=== PATIENT | male | born 1970 | race Caucasian/White ===

== ENCOUNTER 2022-04-17 12:41 | Emergency (ER) | payer OTHER, SELFPAY ==
[2022-04-17 12:50] VITALS: BP 152/82; PULSE 95; RESP 16; TEMP 36.3; O2SAT 98; BMI 22.6
--- NOTE | 2022-04-17 13:40 | CTR_ITS ---
PROCEDURE INFORMATION: Exam: CT Right Lower Extremity Without Contrast; Lower Leg Exam date and time: 04/17/2022 1:54 PM Age: 51 years old Clinical indication: Injury or trauma; Other: Crushed by metal pipes; Crushing; Lower leg; Right; Additional info: Crush injury-swelling/pain posterior knee/calf, need from above knee through calf TECHNIQUE: Imaging protocol: CT of the Right lower extremity without contrast was performed. Exam focused on the lower leg. Radiation optimization: All CT scans at this facility use at least one of these dose optimization techniques: automated exposure control; mA and/or kV adjustment per patient size (includes targeted exams where dose is matched to clinical indication); or iterative reconstruction. COMPARISON: No relevant prior studies available. RADIATION DOSE METRICS: Total DLP (mGy-cm): 671.49 FINDINGS: Bones/joints: Small joint effusion. Prepatellar soft tissue swelling anterior to the patella and patellar tendon consistent with prepatellar bursitis versus contusion/hematoma versus cellulitis. Soft tissues: Probable heterogeneous contusions in the medial calf muscles with no obvious hematomas. CT/CT lower leg RT wo con* [id number] IMPRESSION: 1. Small joint effusion. 2. Prepatellar soft tissue swelling anterior to the patella and patellar tendon consistent with prepatellar bursitis versus contusion/hematoma versus cellulitis. 3. Probable heterogeneous contusions in the medial calf muscles with no obvious hematomas.
--- NOTE | 2022-04-17 13:40 | W.ED.EXTPRO ---
HPI - Extremity Problem General: Chief complaint: Extremity Injury, Lower Stated complaint: Injury to both legs Time Seen by Provider: 04/17/22 13:23 Source: patient Mode of arrival: wheelchair Limitations: no limitations History of Present Illness: Patient is a nice 51-year-old male who presents to ED today for evaluation of a right lower leg injury that he sustained earlier today after the extremity was crushed by extremely heavy piping material. He apparently was seen at [facility] and had XRs of the knee performed and told to come to the ED to rule out a hairline fracture and/or possible compartment syndrome. That report came from patient himself and I did not speak to provider who cared for patient. Patient tells me he was up on a cluster of large metal pipes when he fell and several of the pipes landed onto his legs. He states he was trapped underneath the pipes for approximately 5 minutes. He states he did initially have some numbness and tingling to his right lower extremity while trapped but states this has subsided. He has noticed swelling to the posterior aspect of his right knee and down into his right calf. He has not noticed any color or temperature changes to the extremity. He has multiple abrasions throughout bilateral lower legs. MD Complaint: extremity pain and extremity swelling Onset (ago): hour(s) Pain Consistency: constant Location: right and lower extremity Radiation: none Relieving factors: immobilization Exacerbating factors: weight bearing, walking and palpation Associated symptoms: Reports no associated symptoms; Deny chest pain Review of Systems Card: Denies: chest pain Resp: Denies: dyspnea GI: Denies: abdominal pain Musc: Reports: extremity pain (R calf/lower leg), extremity swelling (R calf/lower leg), joint pain (R knee) and joint swelling (R knee); Denies: neck pain, back pain, joint redness or joint warmth Skin/Breast: Reports: other (multiple abrasions) Neuro: Denies: headache(s), numbness in extremities, weakness in extremities or sensory changes Physical Exam Const: COMMON NORMALS: no acute distress, average body habitus, patient oriented x3, no limitations, healthy appearing, alert and well nourished GENERAL APPEARANCE: cooperative Resp: COMMON NORMALS: normal respiratory effort and clear to auscultation bilaterally AUSCULTATION: clear to auscultation bilaterally Cardio: COMMON NORMALS: regular rate and regular rhythm RATE: regular rate RHYTHM: regular rhythm GI: COMMON NORMALS: Normal to inspection, nondistended, normoactive bowel sounds present, Soft to palpation and non-tender PALPATION: Yes Soft to palpation Back/Pelvis: COMMON NORMALS: thoracic and lumbar spine normal to inspection, no thoracic nor lumbar tenderness and thoraco-lumbar ROM normal Extremity: COMMON NORMALS: capillary refill normal and no pedal edema GENERAL: Yes normal exam except as noted RIGHT LOWER EXTREMITY: Yes knee joint and Yes lower leg OTHER: pt has tenderness/swelling noted to R posterior knee and into calf/gastrocnemius musculature; he does not seem to have any bony tenderness of knee joint; he has easily palpable DP/PT pulses with normal cap refill and sensation; his calf, although very swollen, is soft without any concern for a compartment syndrome at this time; pain is not out of proportion to exam Neuro: COMMON NORMALS: patient oriented x3, moves all extremities, no focal motor deficits and no sensory deficits noted SENSORIUM/ORIENTATION: Yes alert Skin: NARRATIVE SKIN EXAM: multiple very superficial abrasions to bilateral mainly anterior lower legs Course Vital Signs: Vital signs: Vital Signs Temperature 97.4 F L 04/17/22 12:50 Pulse Rate 95 04/17/22 12:50 Respiratory Rate 16 04/17/22 12:50 Blood Pressure 152/82 04/17/22 12:50 Pulse Oximetry 98 04/17/22 12:50 MDM - Extremity (Nontraumatic) Medical Decision Making Patient has prepatellar swelling most likely secondary to contusion/hematoma. He does have heterogeneous contusions throughout his gastrocnemius muscles with no obvious hematoma fluid collections. No bony injury noted. Extremity at this time is neurovascularly intact and I have zero concern for compartment syndrome at this time. We will have him non-weightbearing, ice, elevate the extremity and will have him follow-up with orthopedics for further evaluation and treatment. Strict return ED precautions given and patient verbalizes understanding. Lab Data Radiology Impressions Lower Extremity CT 04/17/22 13:40 IMPRESSION: 1. Small joint effusion. 2. Prepatellar soft tissue swelling anterior to the patella and patellar tendon consistent with prepatellar bursitis versus contusion/hematoma versus cellulitis. 3. Probable heterogeneous contusions in the medial calf muscles with no obvious hematomas. Discharge Plan Discharge Patient Disposition: Home Clinical Impression: Muscle contusion Hematoma of right lower extremity Qualifiers: Encounter type: initial encounter Qualified Code(s): S80.11XA - Contusion of right lower leg, initial encounter Condition: Stable Discharge Orders: Discharge ED (Routine); Ordered 04/17/22 Ordered By: Kristan Angeles Referrals: Garrison Freeman MD [Primary Care Provider] - Activity Restrictions/Additional Instructions: As we discussed no weight bearing on the extremity until cleared by orthopedics. Case management should contact you shortly to set you up with this follow-up appointment. As we discussed I would like you to ice the extremity for 15 to 20 minutes every hour and elevate is much as possible to help with the swelling. You need to return to the emergency department for any worsening or severe pain, severe tightness to the leg, coolness/pallor, numbness/tingling/loss of sensation, or any other concerns you may have. I hope you begin to feel better soon. Coding Level of Care Code ED Boilerhouse Mechanic for [facility]
--- NOTE | 2022-04-18 09:56 | DCPLANNER ---
Addendum entered by Leanne Ahumada 05/04/22 13:11: audio visual manager received the following message from the ortho clinic: Attempted to reach pt/left vm and mailed letter for pt to call and schedule an appt with TAYLOR Aldana Original Note: audio visual manager had message to schedule a follow up appointment for patient with ortho. audio visual manager sent patients information to the front office of ortho. Patients information will be printed and reviewed. Clinic will call patient with appointment information.
== END 2022-04-17 15:12 | disposition home or self-care (01) ==
PROVIDERS: Emergency Provider Physician Assistant; PCP Family Medicine
DX: S80.11XA Contusion of right lower leg, initial encounter (principal); S80.812A Abrasion, left lower leg, initial encounter; S80.811A Abrasion, right lower leg, initial encounter; S80.12XA Contusion of left lower leg, initial encounter; W20.8XXA Other cause of strike by thrown, projected or falling object, initial encounter
CPT/HCPCS: 73700; 99284; E0114

== ENCOUNTER 2023-05-15 00:33 | Emergency (ER) | payer MEDICAID, SELFPAY ==
[2023-05-15 00:34] VITALS: BP 140/93; PULSE 90; RESP 18; O2SAT 98; BMI 24.2
[2023-05-15 00:48] LABS: Basophils # 0.1 10^3/uL (0.0-0.1); Basophils % 0.5 %; Eosinophils # 0.1 10^3/uL (0.0-0.8); Eosinophils % 1.4 %; Hematocrit 33.2 % (37-53); Lymphocytes # 1.1 10^3/uL (0.8-4.8); Lymphocytes % 10.9 %; Mean Corpuscular Hemoglobin 34.9 pg (27-33); Mean Corpuscular Volume 102.5 fl (82-101); Mean Platelet Volume 8.8 fL (7.4-10.4); Monocytes # 0.7 10^3/uL (0.2-0.9); Monocytes % 7.1 %; Neutrophils # 7.79 10^3/uL (1.8-7.7); Neutrophils % 79.6 %; Nucleated Red Blood Cells % 0 %; Platelet Count 748 10^3/cmm (157-399); Red Blood Count 3.24 10^6/uL (3.85-5.65); Red Cell Distribution Width 12.7 % (12.1-15.1)
--- NOTE | 2023-05-15 00:56 | ED_ITS ---
HPI - Altered Mental Status General: Chief Complaint: Altered Mental Status Stated Complaint: pulled out tubes Time Seen by Provider: 05/15/23 00:42 History of Present Illness: Patient presents to the ER by EMS with complaints of intermittent episode of delirium where he pulled out all of his drains and feeding tube. Patient just had what appeared to be radical neck surgery with bone grafting to his mandible and a drain and skin graft on his left lower leg no family is with patient at bedside. EMS stated he had similar episodes in the hospital. EMS stated that they thought he was just discharged back home today. They did talk him down from his delirious state he is alert oriented and back to normal at this time. Patient is in no distress. Review of Systems General: Reports: 10 or more systems reviewed and unremarkable except in HPI and below Physical Exam Const: COMMON NORMALS: no acute distress, average body habitus, patient oriented x3, no limitations, healthy appearing, alert and well nourished HENMT: COMMON NORMALS: normocephalic, atraumatic, hearing grossly normal bilaterally, external ears normal, Normal external nose present and moist oral mucous membranes HEAD & SCALP: normocephalic and atraumatic NOSE: Normal external nose present EXTERNAL EAR: Yes external ears normal Eye: COMMON NORMALS: Equal, round and reactive pupils present, EOMs intact bilaterally, conjunctivae normal and no scleral icterus CONJUNCTIVA: Yes conjunctivae normal PUPIL: Yes Equal, round and reactive pupils present Neck/C-Spine: COMMON NORMALS: no JVD OTHER: Very large incision down mandible down neck. 2 drain tube sites noted 1 on each side of lateral neck. No drain in place. Chest: COMMONS NORMALS: normal inspection of the chest and normal palpation of entire chest wall Resp: COMMON NORMALS: normal respiratory effort, No retractions, No use of accessory muscles and clear to auscultation bilaterally AUSCULTATION: clear to auscultation bilaterally Cardio: COMMON NORMALS: no JVD, regular rate, regular rhythm, S1 normal heart sound present, S2 normal heart sound present and No gallops present (Cardio) RATE: regular rate RHYTHM: regular rhythm HEART SOUNDS: S1 normal heart sound present and S2 normal heart sound present GI: COMMON NORMALS: Normal to inspection, nondistended, normoactive bowel sounds present, Soft to palpation, non-tender and No hepatosplenomegaly present PALPATION: Yes Soft to palpation and Yes No hepatosplenomegaly present Neuro: COMMON NORMALS: patient oriented x3 SENSORIUM/ORIENTATION: Yes alert Skin: NARRATIVE SKIN EXAM: Large postsurgical incision noted to left calf with drain insertion site with no drain noted. Course Vital Signs: Vital signs: Vital Signs Pulse Rate 83 05/15/23 01:02 Respiratory Rate 20 H 05/15/23 01:02 Blood Pressure 124/76 05/15/23 01:02 Pulse Oximetry 96 05/15/23 01:02 Oxygen Delivery Me thod Room Air 05/15/23 01:02 MDM - Altered Mental Status Medical Decision Making Dr. Lozada ENT resident was called from [facility] who is familiar with the patient's case. He said the drains are not significant as they were not draining very much upon discharge. He said the tracheostomy was pulled before discharge. He had actually seen the patient yesterday in our clinic. And they will call him tomorrow to make arrangements for a possible GI tube/PEG tube for long-term feeding. Otherwise patient be discharged home. These findings was discussed with patient and family members and they are in agreements that this is acceptable. Patient be discharged home. Differential Diagnosis Likely altered mental status and delirium; Unlikely alcoholic intoxication, dementia, hypoglycemia, hyponatremia, subarachnoid hemorrhage or sepsis Medical Records I reviewed the patient's medical records. Lab Data I reviewed the patient's lab results. 05/15/23 00:23 05/15/23 00:23 Laboratory Results WBC 9.80 10^3/uL (3.29-11.43) 05/15/23 00:23 RBC 3.24 10^6/uL (3.85-5.65) L 05/15/23 00:23 Hgb 11.30 g/dL (11.27-16.99) 05/15/23 00:23 Hct 33.2 % (37-53) L 05/15/23 00:23 MCV 102.5 fl (82-101) H 05/15/23 00:23 MCH 34.9 pg (27-33) H 05/15/23 00:23 MCHC 34.0 g/dL (30-55) 05/15/23 00:23 RDW 12.7 % (12.1-15.1) 05/15/23 00:23 Plt Count 748 10^3/cmm (157-399) H 05/15/23 00:23 MPV 8.8 fL (7.4-10.4) 05/15/23 00:23 Neut % (Auto) 79.6 % 05/15/23 00:23 Lymph % (Auto) 10.9 % 05/15/23 00:23 Lipscomb % (Auto) 7.1 % 05/15/23 00:23 Eos % (Auto) 1.4 % 05/15/23 00:23 Baso % (Auto) 0.5 % 05/15/23 00:23 Neut # (Auto) 7.79 10^3/uL (1.8-7.7) H 05/15/23 00:23 Lymph # (Auto) 1.1 10^3/uL (0.8-4.8) 05/15/23 00:23 Lipscomb # (Auto) 0.7 10^3/uL (0.2-0.9) 05/15/23 00:23 Eos # (Auto) 0.1 10^3/uL (0.0-0.8) 05/15/23 00:23 Baso # (Auto) 0.1 10^3/uL (0.0-0.1) 05/15/23 00:23 Nucleated RBC % (auto) 0 % 05/15/23 00: Nucleated RBCs # 0.0 /100WBC 05/15/23 00:23 Sodium 141 mmol/L (136-145) 05/15/23 00:23 Potassium 3.6 mmol/L (3.5-5.1) 05/15/23 00:23 Chloride 101 mmol/L (98-107) 05/15/23 00:23 Carbon Dioxide 25 mmol/L (22-29) 05/15/23 00:23 Anion Gap 18.6 (5-19) 05/15/23 00:23 BUN 23 mg/dL (6-20) H 05/15/23 00:23 Creatinine 0.9 mg/dL (0.7-1.2) 05/15/23 00:23 GFR Calculation 88.3 mL/min (90-130) L 05/15/23 00:23 Glucose 116 mg/dL (65-115) H 05/15/23 00:23 Calculated Osmolality 297 mOsm/kg (285-295) H 05/15/23 00:23 Calcium 9.4 mg/dL (8.5-10.5) 05/15/23 00:23 Magnesium 2.0 mg/dL (1.7-2.3) 05/15/23 00:23 Total Bilirubin 0.3 mg/dL (0.15-1.2) 05/15/23 00:23 AST 17 U/L (0-40) 05/15/23 00:23 ALT 26 U/L (0-41) 05/15/23 00:23 Alkaline Phosphatase 111 U/L (40-130) 05/15/23 00:23 Total Protein 7.6 g/dL (6.6-8.7) 05/15/23 00:23 Albumin 4.0 g/dL (3.5-5.2) 05/15/23 00:23 Globulin 3.6 g/dL (1.3-4.6) 05/15/23 00:23 Urine Color Dark yellow (Yellow) 05/15/23 01:39 Urine Appearance Clear (CLEAR) 05/15/23 01:39 Urine pH 6.5 (5-7) 05/15/23 01:39 Ur Specific Billings 1.015 (1.005-1.030) 05/15/23 01:39 Urine Protein Neg (Negative) 05/15/23 01:39 Urine Glucose (UA) Norm (Normal) 05/15/23 01:39 Urine Ketones Negative (Negative) 05/15/23 01:39 Urine Blood Neg (Negative) 05/15/23 01:39 Urine Nitrate Negative (Negative) 05/15/23 01:39 Urine Bilirubin Neg (Negative) 05/15/23 01:39 Urine Urobilinogen 4 mg/dL (Negative) H 05/15/23 01:39 Ur Leukocyte Esterase Negative (Negative) 05/15/23 01:39 Urine Opiates Screen Negative ng/mL (Negative) 05/15/23 01:39 Ur Barbiturates Screen Negative ng/mL (Negative) 05/15/23 01:39 Ur Phencyclidine Scrn Negative ng/mL (Negative) 05/15/23 01:39 Ur Amphetamines Screen Negative ng/mL (Negative) 05/15/23 01:39 U Benzodiazepines Scrn Negative ng/mL (Negative) 05/15/23 01:39 Urine Cocaine Screen Negative ng/mL (Negative) 05/15/23 01:39 U Marijuana (THC) Screen Negative ng/mL (Negative) 05/15/23 01:39 Discharge Plan Discharge Patient Disposition: Home Clinical Impression: Delirium due to general medical condition Condition: Stable Discharge Orders: Discharge ED (Routine); Ordered 05/15/23 Ordered By: Sudheer Traore Patient Instructions: Altered Mental Status (ED) Activity Restrictions/Additional Instructions: Your case was discussed with Dr. Lozada the ENT resident for Dr. Bhagat. He is comfortable with discharging home and they will be calling you tomorrow to set up appointment in the clinic to talk about a long-term feeding tube arrangement. Coding Level of Care Code ED Tank Insulator Rubber for [facility]lee Ha
[2023-05-15 01:02] VITALS: BP 124/76; PULSE 83; RESP 20; O2SAT 96
[2023-05-15 01:07] LABS: Alanine Aminotransferase 26 U/L (0-41); Alkaline Phosphatase 111 U/L (40-130); Anion Gap 18.6 (5-19); Aspartate Amino Transferase 17 U/L (0-40); Blood Urea Nitrogen 23 mg/dL (6-20); Calcium 9.4 mg/dL (8.5-10.5); Carbon Dioxide 25 mmol/L (22-29); Chloride 101 mmol/L (98-107); Creatinine Clr Calc Pharmacy 87.9339; Globulin 3.6 g/dL (1.3-4.6); Glomerular Filtration Rate 88.3 mL/min (90-130); Glucose 116 mg/dL (65-115); Osmolality Calculated 297 mOsm/kg (285-295); Potassium 3.6 mmol/L (3.5-5.1); Sodium 141 mmol/L (136-145); Total Bilirubin 0.3 mg/dL (0.15-1.2); Total Protein 7.6 g/dL (6.6-8.7)
--- NOTE | 2023-05-15 01:11 | PC.NURSE ---
Addendum entered by Socorro Snyder RN 05/15/23 01:16: & jossie Original Note: L calf incision rewrapped with xeroform, Vaseline gauze, and ivis bandage.
[2023-05-15 01:47] LABS: Add Urine Microscopic? NO; Charge for UA Resulting for Rev
[2023-05-15 01:48] LABS: Bilirubin Urine Neg (Negative); Blood Urine Neg (Negative); Glucose Urine UA Norm (Normal); Ketones Urine Negative (Negative); Leukocyte Esterase Urine Negative (Negative); Nitrate Urine Negative (Negative); Protein Urine Neg (Negative); Specific Gravity, Urine 1.015 (1.005-1.030); Urine Appearance Clear (CLEAR); Urine Color Dark Yellow (Yellow); Urobilinogen Urine 4 mg/dL (Negative); pH Urine 6.5 (5-7)
--- NOTE | 2023-05-15 01:55 | PC.NURSE ---
Dr. Traore in communication with [facility] in [place] for continuity of care for pt. updated family and pt.
[2023-05-15 01:57] LABS: Amphetamines Screen Urine Negative (Negative); Barbiturates Screen Urine Negative (Negative); Benzodiazepines Screen Urine Negative (Negative); Cocaine Screen Urine Negative (Negative); Opiate Screen Urine Negative (Negative); PCP Screen Urine Negative (Negative); THC Screen Urine Negative (Negative)
[2023-05-15 02:29] VITALS: BP 131/73; PULSE 99; RESP 25; O2SAT 97
== END 2023-05-15 02:33 | disposition home or self-care (01) ==
PROVIDERS: Emergency Provider Emergency Medicine
DX: F05 Delirium due to known physiological condition (principal)
CPT/HCPCS: 80053; 80306; 81003; 83735; 85025; 99283

== ENCOUNTER 2024-02-19 18:32 | Emergency (ER) | payer MEDICAID, SELFPAY ==
[2024-02-19 18:36] VITALS: BP 128/84; PULSE 95; RESP 14; TEMP 36.9; O2SAT 95
--- NOTE | 2024-02-19 18:54 | ED_ITS ---
HPI - Wound/Laceration General: Chief Complaint: Wound/Laceration Stated Complaint: Right ring finger lac Time Seen by Provider: 02/19/24 18:54 Source: patient Mode of arrival: ambulatory Limitations: no limitations History of Present Illness: Patient is a nice 53-year-old male who presents to ED today for evaluation of a skin injury of his right ring finger that he sustained just prior to arrival af ter he was using a mandolin and states that sliced a portion of his finger off. Last tetanus unknown. Onset (ago): hour(s) Extremity Location: Right: hand (finger) Place: home Patient tetanus UTD: No Context: accidental Associated symptoms: Reports no associated symptoms Treatments prior to arrival: bandage Review of Systems Musc: Reports: extremity pain Skin/Breast: Reports: other (skin avulsion finger) Neuro: Denies: numbness in extremities or sensory changes Physical Exam Const: COMMON NORMALS: no acute distress, no limitations, alert and well nourished Extremity: COMMON NORMALS: capillary refill normal GENERAL: Yes normal exam except as noted RIGHT UPPER EXTREMITY: Yes hand & digits OTHER: small distal finger tip skin avulsion; no bony involvement; small amount of oozing present-silver nitrate cauterization helped; finger wrapped with surgicel/hemostat material Neuro: COMMON NORMALS: moves all extremities, no focal motor deficits and no sensory deficits noted SENSORIUM/ORIENTATION: Yes alert Skin: NARRATIVE SKIN EXAM: see above Course Vital Signs: Vital signs: Vital Signs Temperature 98.5 F 02/19/24 18:36 Pulse Rate 95 02/19/24 18:36 Respiratory Rate 14 02/19/24 18:36 Blood Pressure 128/84 02/19/24 18:36 Pulse Oximetry 95 02/19/24 18:36 Oxygen Delivery Me thod Room Air 02/19/24 18:36 MDM - Wound/Laceration Medical Decision Making Patient here for small skin avulsion to the distal aspect of his right ring finger. There is nothing to repair at this time. Wound was dressed appropriately. Tetanus updated. Return to ED precautions given. No radiology studies performed this visit Discharge Plan Discharge Patient Disposition: Home Clinical Impression: Avulsion of skin Condition: Stable Discharge Orders: Discharge ED (Routine); Ordered 02/19/24 Ordered By: Kristan Angeles Patient Instructions: Skin Avulsion Activity Restrictions/Additional Instructions: If bleeding persists you need to hold firm/direct pressure to site of oozing for 30 mins and even longer if feasible/needed. If you still cannot get bleeding to stop-you may return to the emergency department. Coding Level of Care Code ED Pl[employer] Inspector for [facility]
[2024-02-19] MEDS: silver nitrate applicator 1 EACH TOPICAL (19:22)
[2024-02-19] MEDS: tetanus-dipt-pertussis 0.5 mL SDV IM (19:54)
[2024-02-19 20:10] VITALS: BP 128/84; PULSE 95; RESP 14; TEMP 36.9; O2SAT 95
== END 2024-02-19 20:16 | disposition home or self-care (01) ==
PROVIDERS: Emergency Provider Physician Assistant
DX: S61.204A Unspecified open wound of right ring finger without damage to nail, initial encounter (principal); W26.0XXA Contact with knife, initial encounter; Z23 Encounter for immunization
CPT/HCPCS: 90471; 90715; 99283

== ENCOUNTER 2024-11-13 08:36 | Emergency (ER) | payer MEDICAID, SELFPAY ==
[2024-11-13 09:14] VITALS: BP 112/83; PULSE 102; RESP 18; TEMP 36.7; O2SAT 96; BMI 16.1
--- NOTE | 2024-11-13 09:24 | ED_ITS ---
Documented by User: ALEX Calvin 11/13/24 11:31 HPI - General Adult General: Chief complaint: General Medical Stated complaint: feeding tube out Time Seen by Provider: 11/13/24 08:54 Source: patient and family Mode of arrival: wheelchair Limitations: no limitations History of Present Illness: Patient is a 54-year-old male who presents to the ED today along with his si gnificant other for evaluation of his feeding tube that he inadvertently pulled out in the middle of the night. 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 Onset (ago): hour(s) Relieving factors: none Exacerbating factors: none Associated symptoms: Deny chest pain, dyspnea or vomiting Treatments prior to arrival: none Related Data Home Medications ?Medication ?Instructions ?Recorded ?Confirmed [id number] 2 See Rx Instructions . Route .COMPLEX 11/13/24 11/13/24 %-2 %-14 % (200 mg/sec) topical spray (Cetacaine) quetiapine 25 mg tablet 25 mg PO BEDTIME 11/13/24 Previous Rx's ?Medication ?Instructions ?Recorded atropine 1 % eye drops 4 drp sublingual Q4H PRN secretions #5 mL lorazepam 2 mg/mL oral concentrate 2 mg sublingual Q4H PRN 09/25/24 Anxiety/Seizure #30 mL ondansetron 4 mg disintegrating 4 mg translingual Q4H PRN nausea 09/25/24 tablet #5 tabs amoxicillin 400 mg/5 mL oral 500 mg (6.25 mL) PO BID 1 5 days 11/02/24 suspension #200 mL bisacodyl 10 mg rectal suppository 10 mg DC DAILY PRN constipation 11/02/24 #12 ea diphenhydramine HCl 12.5 mg/5 mL 25 mg (10 mL) PO Q6H PRN allergy 11/02/24 oral liquid (Allergy Relief symptoms #200 mL (diphenhydramine)) fentanyl 75 mcg/hr transdermal 1 patch transdermal Q72 H 15 days 11/02/24 patch #5 ea hydroxyzine HCl 10 mg/5 mL (5 mL) 25 mg (12.5 mL) PO T ID PRN itching 11/02/24 oral solution #360 mL oxycodone 20 mg/mL oral concentrate 10 mg (0.5 mL) PO Q4H PRN pain 15 11/02/24 days #60 mL Allergies Allergy/AdvReac Type Severity Reaction Status Date / Time No Known Allergies Allergy Verified 11/13/24 09:22 Review of Systems Const: Denies: fever(s) Card: Denies: chest pain Resp: Denies: dyspnea GI: Denies: abdominal pain, vomiting or change in bowel habits PFSH ED PFSH: Social History Smoking and tobacco/nicotine status: never used tobacco/nicotine Physical Exam Const: COMMON NORMALS: no acute distress, patient oriented x3, no limitations, alert and well nourished Resp: COMMON NORMALS: normal respiratory effort and clear to auscultation bilaterally AUSCULTATION: clear to auscultation bilaterally Cardio: COMMON NORMALS: regular rate and regular rhythm RATE: regular rate RHYTHM: regular rhythm GI: COMMON NORMALS: Normal to inspection, nondistended, normoactive bowel sounds present, Soft to palpation, non-tender, No hepatosplenomegaly present and no masses INSPECTION: Yes normal to inspection PALPATION: Yes Soft to palpation and Yes No hepatosplenomegaly present OTHER: gastrostomy site appears clean; previous 16F 3-5mm balloon g tube was provided by family member Neuro: COMMON NORMALS: patient oriented x3 SENSORIUM/ORIENTATION: Yes alert Course Vital Signs: Vital signs: Vital Signs Temperature 98.0 F 11/13/24 09:14 Pulse Rate 102 H 11/13/24 09:14 Respiratory Rate 18 11/13/24 09:14 Blood Pressure 112/83 11/13/24 09:14 Pulse Oximetry 96 11/13/24 09:14 Oxygen Delivery Me thod Room Air 11/13/24 09:14 MDM - General Adult Medical Decision Making I attempted reinserting g-tube several times without success. Smaller catheter was attempted as well as diliation all without success. Dr. Bucio also tried replacing but could not. 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 Discussed transfer but family adamantly declines due to adverse weather/storms coming in. We discussed admitting the patient overnight and having surgery consult on them in the morning but they declined this as well. They would like to go home. Our call schedule does report we have general surgery on-call at 7 AM in the morning. They will return to then. Family states patient is able to take small nutritional oral feedings so they will just do this today/overnight until the morning. Medical Records I reviewed the patient's medical records. No radiology studies performed this visit Discharge Plan Discharge Patient Disposition: Home Clinical Impression: Encounter for feeding tube placement Condition: Stable Prescriptions: No Action atropine 1 % drops 4 drp sublingual Q4H PRN (Reason: secretions) Qty: 5 0RF Rx Instructions: 4 drops SL q 4 hours PRN for terminal congestion/excessive secretions. lorazepam 2 mg/mL concentrate 2 mg sublingual Q4H PRN (Reason: Anxiety/Seizure) Qty: 30 0RF Rx Instructions: 0.25ml-1ml q4H PRN Anxiety/Seizure Start 0.25ml may increase to 0.5ml-1ml q4H ondansetron 4 mg tablet,disintegrating 4 mg translingual Q4H PRN (Reason: nausea) Qty: 5 0RF Rx Instructions: Dissolve 1 tablet under tongue every 4 hours PRN for nausea fentanyl 75 mcg/hr patch 72 hour 1 patch transdermal Q72H 15 Days Qty: 5 0RF hydroxyzine HCl 10 mg/5 mL (5 mL) solution 25 mg PO TID PRN (Reason: itching) Qty: 360 0RF amoxicillin 400 mg/5 mL suspension for reconstitution 500 mg PO BID 15 Days Qty: 200 5RF diphenhydramine HCl [Allergy Relief(diphenhydramin)] 12.5 mg/5 mL liquid 25 mg PO Q6H PRN (Reason: allergy symptoms) Qty: 200 0RF bisacodyl 10 mg suppository 10 mg DC DAILY PRN (Reason: constipation) Qty: 12 0RF oxycodone 20 mg/mL concentrate 10 mg PO Q4H PRN (Reason: pain) 15 Days Qty: 60 0RF quetiapine 25 mg Tablet 25 mg PO BEDTIME Cetacaine 2 %-2 %-14 % (200 mg/sec) aerosol,spray See Rx Instructions .ROUTE .COMPLEX Rx Instructions: SPRAY A ONE second SPRAY FOUR TIMES DAILY NEEDED. MAY USE in MOUTH AND SPRAY onto gauze AND dab ON cancerous wounds. Discharge Orders: Discharge ED (Routine); Ordered 11/13/24 Ordered By: Kristan Angeles Activity Restrictions/Additional Instructions: As we discussed, our call schedule reports we do have general surgery on-call at 7 AM tomorrow morning. You have been offered transfer today but you declined. You have been offered admission into the hospital overnight but have declined. You have reported that he will come back in the morning for general surgery consult for feeding tube placement. Print Language: Belgian Coding Level of Care Code ED Power Plant Manager for Chg Fwd Documented by User: Freya Bucio MD 11/13/24 12:38 HPI - General Adult General: Chief complaint: General Medical Stated complaint: feeding tube out Time Seen by Provider: 11/13/24 08:54 Related Data Home Medications ?Medication ?Instructions ?Recorded ?Confirmed [id number] 2 See Rx Instructions . Route .COMPLEX 11/13/24 11/13/24 %-2 %-14 % (200 mg/sec) topical spray (Cetacaine) quetiapine 25 mg tablet 25 mg PO BEDTIME 11/13/24 Previous Rx's ?Medication ?Instructions ?Recorded atropine 1 % eye drops 4 drp sublingual Q4H PRN secretions #5 mL lorazepam 2 mg/mL oral concentrate 2 mg sublingual Q4H PRN 09/25/24 Anxiety/Seizure #30 mL ondansetron 4 mg disintegrating 4 mg translingual Q4H PRN nausea 09/25/24 tablet #5 tabs amoxicillin 400 mg/5 mL oral 500 mg (6.25 mL) PO BID 1 5 days 11/02/24 suspension #200 mL bisacodyl 10 mg rectal suppository 10 mg DC DAILY PRN constipation 11/02/24 #12 ea diphenhydramine HCl 12.5 mg/5 mL 25 mg (10 mL) PO Q6H PRN allergy 11/02/24 oral liquid (Allergy Relief symptoms #200 mL (diphenhydramine)) fentanyl 75 mcg/hr transdermal 1 patch transdermal Q72 H 15 days 11/02/24 patch #5 ea hydroxyzine HCl 10 mg/5 mL (5 mL) 25 mg (12.5 mL) PO T ID PRN itching 11/02/24 oral solution #360 mL oxycodone 20 mg/mL oral concentrate 10 mg (0.5 mL) PO Q4H PRN pain 15 11/02/24 days #60 mL Allergies Allergy/AdvReac Type Severity Reaction Status Date / Time No Known Allergies Allergy Verified 11/13/24 09:22 [facility] ED PFSH: Social History Smoking and tobacco/nicotine status: never used tobacco/nicotine Course Vital Signs: Vital signs: Vital Signs Temperature 98.0 F 11/13/24 09:14 Pulse Rate 102 H 11/13/24 09:14 Respiratory Rate 18 11/13/24 09:14 Blood Pressure 112/83 11/13/24 09:14 Pulse Oximetry 96 11/13/24 09:14 Oxygen Delivery Me thod Room Air 11/13/24 09:14 MDM - General Adult Medical Decision Making I attempted reinserting g-tube several times without success. Smaller catheter was attempted as well as diliation all without success. Dr. Bucio also tried replacing but could not. 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 Discussed transfer but family adamantly declines due to adverse weather/storms coming in. We discussed admitting the patient overnight and having surgery consult on them in the morning but they declined this as well. They would like to go home. Our call schedule does report we have general surgery on-call at 7 AM in the morning. They will return to then. Family states patient is able to take small nutritional oral feedings so they will just do this today/overnight until the morning. Discharge Plan Discharge Patient Disposition: Home Clinical Impression: Encounter for feeding tube placement Condition: Stable Prescriptions: No Action atropine 1 % drops 4 drp sublingual Q4H PRN (Reason: secretions) Qty: 5 0RF Rx Instructions: 4 drops SL q 4 hours PRN for terminal congestion/excessive secretions. lorazepam 2 mg/mL concentrate 2 mg sublingual Q4H PRN (Reason: Anxiety/Seizure) Qty: 30 0RF Rx Instructions: 0.25ml-1ml q4H PRN Anxiety/Seizure Start 0.25ml may increase to 0.5ml-1ml q4H ondansetron 4 mg tablet,disintegrating 4 mg translingual Q4H PRN (Reason: nausea) Qty: 5 0RF Rx Instructions: Dissolve 1 tablet under tongue every 4 hours PRN for nausea fentanyl 75 mcg/hr patch 72 hour 1 patch transdermal Q72H 15 Days Qty: 5 0RF hydroxyzine HCl 10 mg/5 mL (5 mL) solution 25 mg PO TID PRN (Reason: itching) Qty: 360 0RF amoxicillin 400 mg/5 mL suspension for reconstitution 500 mg PO BID 15 Days Qty: 200 5RF diphenhydramine HCl [Allergy Relief(diphenhydramin)] 12.5 mg/5 mL liquid 25 mg PO Q6H PRN (Reason: allergy symptoms) Qty: 200 0RF bisacodyl 10 mg suppository 10 mg DC DAILY PRN (Reason: constipation) Qty: 12 0RF oxycodone 20 mg/mL concentrate 10 mg PO Q4H PRN (Reason: pain) 15 Days Qty: 60 0RF quetiapine 25 mg Tablet 25 mg PO BEDTIME Cetacaine 2 %-2 %-14 % (200 mg/sec) aerosol,spray See Rx Instructions .ROUTE .COMPLEX Rx Instructions: SPRAY A ONE second SPRAY FOUR TIMES DAILY NEEDED. MAY USE in MOUTH AND SPRAY onto gauze AND dab ON cancerous wounds. Discharge Orders: Discharge ED (Routine); Ordered 11/13/24 Ordered By: Kristan Angeles Activity Restrictions/Additional Instructions: As we discussed, our call schedule reports we do have general surgery on-call at 7 AM tomorrow morning. You have been offered transfer today but you declined. You have been offered admission into the hospital overnight but have declined. You have reported that he will come back in the morning for general surgery consult for feeding tube placement. Print Language: Belgian Coding Level of Care Code ED Power Plant Manager for Baylee Ha
--- NOTE | 2024-11-13 09:53 | PC.PHAR ---
states unable to give medications this morning.
[2024-11-13] MEDS: LORazepam 2 mg/mL INJ 1 mL IM (10:11)
== END 2024-11-13 12:11 | disposition home or self-care (01) ==
PROVIDERS: Emergency Provider Physician Assistant
DX: Z46.59 Encounter for fitting and adjustment of other gastrointestinal appliance and device (principal)
CPT/HCPCS: 96372; 99284; J2060

== ENCOUNTER 2024-11-14 08:12 | Emergency (ER) | payer MEDICAID, SELFPAY ==
[2024-11-14 08:27] VITALS: BP 119/78; PULSE 102; RESP 18; TEMP 36.4; O2SAT 96
--- NOTE | 2024-11-14 08:46 | W.ED.GENADLT ---
HPI - General Adult General: Chief complaint: General Medical Stated complaint: surgery Time Seen by Provider: 11/14/24 08:16 Source: patient Mode of arrival: ambulatory Limitations: no limitations History of Present Illness: 54-year-old male who was seen here yesterday for a dislodged PEG tube patient refused transfer that time he is back for PEG tube placement. He has no change in his status no pain no fevers no vomiting Associated symptoms: Deny chest pain, dyspnea, headache(s), nausea, rash or vomiting Related Data Home Medications ?Medication ?Instructions ?Recorded ?Confirmed [id number] 2 See Rx Instructions .Route .COMPLEX 11/13/24 11/13/24 %-2 %-14 % (200 mg/sec) topical spray (Cetacaine) quetiapine 25 mg tablet 25 mg PO BEDTIME 11/13/24 11/13/24 Previous Rx's ?Medication ?Instructions ?Recorded atropine 1 % eye drops 4 drp sublingual Q4H PRN 09/25/24 secretions #5 mL lorazepam 2 mg/mL oral concentrate 2 mg sublingual Q4H PRN 09/25/24 Anxiety/Seizure #30 mL ondansetron 4 mg disintegrating 4 mg translingual Q4H PRN nausea 09/25/24 tablet #5 tabs amoxicillin 400 mg/5 mL oral 500 mg (6.25 mL) PO BID 15 days 11/02/24 suspension #200 mL bisacodyl 10 mg rectal suppository 10 mg [place] DAILY PRN constipation 11/02/24 #12 ea diphenhydramine HCl 12.5 mg/5 mL 25 mg (10 mL) PO Q6H PRN allergy 11/02/24 oral liquid (Allergy Relief symptoms #200 mL (diphenhydramine)) fentanyl 75 mcg/hr transdermal 1 patch transdermal Q72H 15 days 11/02/24 patch #5 ea hydroxyzine HCl 10 mg/5 mL (5 mL) 25 mg (12.5 mL) PO TID PRN itching 11/02/24 oral solution #360 mL oxycodone 20 mg/mL oral concentrate 10 mg (0.5 mL) PO Q4H PRN pain 15 11/02/24 days #60 mL Allergies Allergy/AdvReac Type Severity Reaction Status Date / Time No Known Allergies Allergy Verified 11/13/24 09:22 Review of Systems Const: Denies: fever(s), chills, body aches or change in appetite ENMT: Denies: throat pain or dental pain Card: Denies: chest pain Resp: Denies: dyspnea GI: Denies: abdominal pain, nausea, vomiting or diarrhea Musc: Denies: neck pain or back pain Skin/Breast: Denies: rash Neuro: Denies: headache(s) PFSH ED PFSH: Social History Smoking and tobacco/nicotine status: never used tobacco/nicotine Physical Exam Const: COMMON NORMALS: no acute distress, patient oriented x3 and healthy appearing HENMT: COMMON NORMALS: normocephalic and atraumatic HEAD & SCALP: normocephalic and atraumatic Eye: COMMON NORMALS: conjunctivae normal CONJUNCTIVA: Yes conjunctivae normal Neck/C-Spine: COMMON NORMALS: full ROM and supple Chest: COMMONS NORMALS: normal inspection of the chest Resp: COMMON NORMALS: normal respiratory effort Cardio: COMMON NORMALS: regular rate, regular rhythm and No murmurs present (Cardio) RATE: regular rate RHYTHM: regular rhythm GI: OTHER: No abdominal tenderness site of PEG tube is closed Extremity: COMMON NORMALS: normal to inspection and full ROM Neuro: COMMON NORMALS: patient oriented x3, moves all extremities and no focal motor deficits Psych: COMMON NORMALS: mental status grossly normal, Normal thought process present and cooperative THOUGHT PROCESS: Normal thought process present Skin: COMMON NORMALS: no rashes or lesions noted and no wounds GENERAL SKIN EXAM: no rashes or lesions noted Course Vital Signs: Vital signs: Vital Signs Temperature 97.6 F 11/14/24 08:27 Pulse Rate 102 H 11/14/24 08:27 Respiratory Rate 18 11/14/24 08:27 Blood Pressure 119/78 11/14/24 08:27 Pulse Oximetry 96 11/14/24 08:27 [facility] - General Adult Medical Decision Making Patient presents here with needing PEG tube placed patient was talked by anesthesiologist with his anatomy he wanted awake and ablation he refused patient is leaving and states he is just plans on driving to [place] today or tomorrow. Medical Records I reviewed the patient's medical records. No radiology studies performed this visit Discharge Plan Discharge Patient Disposition: Home Clinical Impression: Complication of feeding tube Condition: Stable Prescriptions: No Action atropine 1 % drops 4 drp sublingual Q4H PRN (Reason: secretions) Qty: 5 0RF Rx Instructions: 4 drops SL q 4 hours PRN for terminal congestion/excessive secretions. lorazepam 2 mg/mL concentrate 2 mg sublingual Q4H PRN (Reason: Anxiety/Seizure) Qty: 30 0RF Rx Instructions: 0.25ml-1ml q4H PRN Anxiety/Seizure Start 0.25ml may increase to 0.5ml-1ml q4H ondansetron 4 mg tablet,disintegrating 4 mg translingual Q4H PRN (Reason: nausea) Qty: 5 0RF Rx Instructions: Dissolve 1 tablet under tongue every 4 hours PRN for nausea fentanyl 75 mcg/hr patch 72 hour 1 patch transdermal Q72H 15 Days Qty: 5 0RF hydroxyzine HCl 10 mg/5 mL (5 mL) solution 25 mg PO TID PRN (Reason: itching) Qty: 360 0RF amoxicillin 400 mg/5 mL suspension for reconstitution 500 mg PO BID 15 Days Qty: 200 5RF diphenhydramine HCl [Allergy Relief(diphenhydramin)] 12.5 mg/5 mL liquid 25 mg PO Q6H PRN (Reason: allergy symptoms) Qty: 200 0RF bisacodyl 10 mg suppository 10 mg [place] DAILY PRN (Reason: constipation) Qty: 12 0RF oxycodone 20 mg/mL concentrate 10 mg PO Q4H PRN (Reason: pain) 15 Days Qty: 60 0RF quetiapine 25 mg Tablet 25 mg PO BEDTIME Cetacaine 2 %-2 %-14 % (200 mg/sec) aerosol,spray See Rx Instructions .ROUTE .COMPLEX Rx Instructions: SPRAY A ONE second SPRAY FOUR TIMES DAILY NEEDED. MAY USE in MOUTH AND SPRAY onto gauze AND dab ON cancerous wounds. Discharge Orders: Discharge ED (Routine); Ordered 11/14/24 Ordered By: Freya Bucio Discharge Diet: Advance as tolerated Discharge Activity: Resume usual activity Patient Instructions: Tube Feeding (DC) Print Language: Latvian Coding Level of Care Code ED Mystery Shopper for Baylee Ha
--- NOTE | 2024-11-14 09:24 | P.MISC_ITS ---
Miscellaneous Note Note: Consulted by Dr. Gomez for anesthesia evaluation for EGD to replace feeding tube in a patient with significant airway distortion. Patient has missing lower right jaw with open wounds and some swelling/mass on the L jaw as well. Tongue appears normal with maybe some slight deviation and limited mobility, he is mallampati IV wth poor mouth opening, but otherwise looks anatomically benign interiorly on exam. Patient and family state his vocal cords and the inside is ok. Our records lack any imaging studies. Because we do not have ENT and because the nature of the his airway his unknown, I let the patient know that I felt the safest and most prudent thing for us to do would be to try to perform awake intubation to make sure we have secured his airway with as minimal risk as possible. I did inform him that there may be a possibility of friable tissues internally that could potentially bleed if we attempted awake intubation, but that he may be completely ok internally as he does not have any issues swallowing. I did offer to proceed today with awake intubation and PEG feeding tube, but patient states he would feel more comfortable driving to [facility] where it was originally placed, where there are more resources. I informed patient and family that if they changed their minds or if any circumstances changed we can certainly try to perform the procedure here with an attempt at awake intubation.
--- NOTE | 2024-11-14 09:39 | PM.CONSULT ---
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 He receives feeding through the PEG tube that was dislodged 2 days ago and was unable to be repositioned yesterday in the ER. He presents for possible tube placement Review of Systems General: Reports: 10 or more systems reviewed and unremarkable except in HPI and below Medications/Allergies Home Medications ?Medication ?Instructions ?Recorded ?Confirmed ?Last Taken ?Type atropine 1 % eye drops 4 drp sublingual Q4H PRN 09/25/24 11/13/24 Unknown Rx secretions #5 mL lorazepam 2 mg/mL oral concentrate 2 mg sublingual Q4H PRN 09/25/24 11/13/24 Unknown Rx Anxiety/Seizure #30 mL ondansetron 4 mg disintegrating 4 mg translingual Q4H PRN nausea 09/25/24 11/13/24 Unknown Rx tablet #5 tabs amoxicillin 400 mg/5 mL oral 500 mg (6.25 mL) PO BID 15 days 11/02/24 11/13/24 11/12/24 Rx suspension #200 mL bisacodyl 10 mg rectal suppository 10 mg [place] DAILY PRN constipation 11/02/24 11/13/24 Unknown Rx #12 ea diphenhydramine HCl 12.5 mg/5 mL 25 mg (10 mL) PO Q6H PRN allergy 11/02/24 11/13/24 Unknown Rx oral liquid (Allergy Relief symptoms #200 mL (diphenhydramine)) fentanyl 75 mcg/hr transdermal 1 patch transdermal Q72H 15 days 11/02/24 11/13/24 11/10/24 Rx patch #5 ea hydroxyzine HCl 10 mg/5 mL (5 mL) 25 mg (12.5 mL) PO TID PRN itching 11/02/24 11/13/24 Unknown Rx oral solution #360 mL oxycodone 20 mg/mL oral concentrate 10 mg (0.5 mL) PO Q4H PRN pain 15 11/02/24 11/13/24 11/12/24 Rx days #60 mL [id number] 2 See Rx Instructions .Route .COMPLEX 11/13/24 11/13/24 Unknown History %-2 %-14 % (200 mg/sec) topical spray (Cetacaine) quetiapine 25 mg tablet 25 mg PO BEDTIME 11/13/24 11/13/24 11/12/24 History Allergies Allergy/AdvReac Type Severity Reaction Status Date / Time No Known Allergies Allergy Verified 11/13/24 09:22 PFSH Acute PFSH: Social History Smoking and tobacco/nicotine status: never used tobacco/nicotine Vitals/I&O/Wt Last Vital Signs Temp 97.6 F 11/14/24 08:27 Pulse 102 H 11/14/24 08:27 Resp 18 11/14/24 08:27 BP 119/78 11/14/24 08:27 Pulse Ox 96 11/14/24 08:27 Weight last 48 hrs Weight 100 lb Physical Exam HENMT: OTHER: There is surgical absence of the majority of the lower jaw especially on the right side, there is exposed tongue, submandibular tissue and muscle. GI: OTHER: Abdomen is soft nontender nondistended, there is a small opening from the previous PEG tube no drainage. A&P Assessment and plan (1) Encounter for feeding tube placement: (2) Complication of feeding tube: Plan After review of all clinical data I have offered the patient percutaneous endoscopy tube placement. I discussed all risk and benefits including the risks of intestinal perforation recurrent surgical intervention and leakage of air into the abdominal cavity requiring decompression. Patient shows understanding is agreeable to proceed. Due to the significant complexity of his airway and the surgical absence of his lower jaw patient was evaluated by anesthesia before proceeding to the endoscopy suite. During anesthesia evaluation it was determined that the best option for the patient at this point will be to proceed with an awake intubation in order to preserve the airway as he has a very high risk for airway compromise. After discussion with the anesthesia team patient has decided that he will prefer to wait and go to higher level of care before proceeding with placement as he has concern of proceeding with an awake intubation and possible loss of airway. Warning signs have been given to the patient, he has signed an AMA form I will be leaving the emergency room. PDMP PDMP Reviewed: Not Reviewed Coding Level of Care Code Acute Code for Chg Fwd Diagnoses Encounter for feeding tube placement Z46.59 Complication of feeding tube K94.20
[2024-11-14 10:16] VITALS: BP 120/84; PULSE 68; O2SAT 92
== END 2024-11-14 10:17 | disposition home or self-care (01) ==
LOC: ER 08:13
PROVIDERS: Emergency Provider Emergency Medicine; Visit Provider Surgery
DX: T85.528A Displacement of other gastrointestinal prosthetic devices, implants and grafts, initial encounter (principal); X58.XXXA Exposure to other specified factors, initial encounter
CPT/HCPCS: 36415; 99281

== ENCOUNTER 2024-11-16 12:05 | Outpatient (CLI) | payer MEDICAID, SELFPAY ==
[2024-11-16 12:48] LABS: SARS Covid-2 Antigen Negative (Negative)
== END 2024-11-16 12:06 | disposition home or self-care (01) ==
LOC: LAB 12:06
PROVIDERS: PCP Family Medicine; Visit Provider Family Medicine
DX: R06.02 Shortness of breath (principal)
CPT/HCPCS: 87426